=== PATIENT | female | born 2000 | race Caucasian/White ===

== ENCOUNTER 2019-03-11 00:57 | Emergency (ER) | payer OTHER ==
[~2019-03-11] VITALS: Ht 165.1 cm; Wt 59.0 kg
--- NOTE | 2019-03-11 01:00 | NUR ---
[facility] here with patient. Patient is in custody.
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
[2019-03-11] MEDS ORDERED: IBUPROFEN 600 MG TABLET ONE (01:15)
[2019-03-11] MEDS ORDERED: IBUPROFEN 600 MG TABLET PO ONE (01:15)
--- NOTE | 2019-03-11 01:21 | NUR ---
[facility] made a phone call for their railroad firer to come draw patients blood.
--- NOTE | 2019-03-11 01:31 | NUR ---
Contracted director of spa and guest experience here to draw patients blood.
--- NOTE | 2019-03-11 01:38 | NUR ---
Phlebotomists name is Melissa.
--- NOTE | 2019-03-11 02:23 | NUR ---
Patient is medically cleared to be booked. Patient discharged with [facility] in stable conditon. Written and verbal after care instructions given. Patient verbalizes understanding of instructions.
[2019-03-11 02:30] VITALS: BP 131/75
== END 2019-03-11 02:44 ==
LOC: ER 01:00
DX: S13.4XXA Sprain of ligaments of cervical spine, initial encounter (principal); F17.200 Nicotine dependence, unspecified, uncomplicated; V49.9XXA Car occupant (driver) (passenger) injured in unspecified traffic accident, initial encounter; Y93.89 Activity, other specified; Y92.89 Other specified places as the place of occurrence of the external cause; Y99.8 Other external cause status
CPT/HCPCS: A4663